=== PATIENT | female | born 1975 | race African-American/Black ===

== ENCOUNTER 2021-10-23 15:08 | Emergency (ER) | payer SELFPAY ==
[2021-10-23 15:31] VITALS: BP 162/101; PULSE 99; TEMP 98.1; BMI 31.9
[2021-10-23] MEDS ORDERED: LIDOCAINE HCL 2% JELLY (30 ML/TUBE) TP ONE (16:10)
[2021-10-23] MEDS ORDERED: KETOROLAC TROMETHAMINE 30 MG/1 ML VIAL IM ONE (16:10)
[2021-10-23] MEDS ORDERED: KETOROLAC TROMETHAMINE 30 MG/1 ML VIAL ONE (16:13)
[2021-10-23] MEDS ORDERED: LIDOCAINE HCL 2% JELLY 10 ML CARTRIDGE ONE (16:13)
== END 2021-10-23 17:00 | disposition home or self-care (01) ==
LOC: JERFT 15:08
PROC: 3E0233Z Introduction of Anti-inflammatory into Muscle, Percutaneous Approach (ICD-10-PCS; principal; 2021-10-23)
DX: K02.9 Dental caries, unspecified (principal); R03.0 Elevated blood-pressure reading, without diagnosis of hypertension
CPT/HCPCS: 99284-25